=== PATIENT | male | born 1985 | race Caucasian/White ===

== ENCOUNTER 2016-12-17 18:30 | Emergency (ER) | payer BC ==
[~2016-12-17] VITALS: Ht 188 cm; Wt 95.9 kg
[~2016-12-17 18:30] MED LIST: IBUP-103 PO; MULT-600 PO; OXYC-57 PO
[2016-12-17 18:43] VITALS: TEMP 37; Ht 188 cm; Wt 95.9 kg
[2016-12-17] MEDS ORDERED: ASCA500 PO (19:42)
[2016-12-17] MEDS ORDERED: CHOL1000 PO (19:42)
[2016-12-17] MEDS ORDERED: OMEG10007 PO (19:42)
[2016-12-17 20:01] LABS: BASO % 0.3 %; BASO ABS # 0.02 K/uL (0-0.2); COMPLETE YES; EOS % 2.6 %; HEMATOCRIT 42.7 % (42-52); IG% 0.3 %; LYMPH ABS # 2.63 K/uL (1.2-3.4); MEAN CELL VOLUME 80.4 fL (80-100); MEAN CORPUSCULAR HEMOGLOBIN 29.2 pg (25-34); MEAN CORPUSCULAR HGB CONC 36.3 g/dl (32-36); MEAN PLATELET VOLUME 9.5 fL (7.4-10.4); MONO % 6.7 %; NEUT % 48.1 %; PLATELET COUNT 214 K/uL (130-400); RED BLOOD COUNT 5.31 M/uL (4.7-6.1); WHITE BLOOD COUNT 6.26 K/uL (4.8-10.8)
[2016-12-17 20:10] LABS: ALT/SGPT 42 U/L (12-78); AST/SGOT 22 U/L (15-37); BLOOD UREA NITROGEN 14 mg/dl (7-18); BUN/CREATININE RATIO 14.3 (10-20); CALCIUM 8.4 mg/dl (8.5-10.1); CARBON DIOXIDE 26 mmol/L (21-32); CHLORIDE 108 mmol/L (98-107); CREATININE 0.96 mg/dl (0.60-1.40); GLUCOSE 85 mg/dl (70-99); POTASSIUM 3.9 mmol/L (3.5-5.1); SODIUM 142 mmol/L (136-145)
--- NOTE | 2016-12-17 20:13 | DIAGNOSTIC IMAGING REPORT ---
CHEST ONE VIEW PORTABLE CLINICAL HISTORY: CHEST PAIN dyspnea COMPARISON STUDY: No previous studies for comparison. FINDINGS: The bones soft tissues and hemidiaphragms are normal. The cardiomediastinal silhouette is normal. The lungs are clear. The pulmonary vasculature is normal. IMPRESSION: Negative chest. Electronically signed by: Frantz Maier M.D. 12/17/2016 8:12 PM Dictated Date/Time: 12/17/2016 8:12 PM
[2016-12-17 20:21] LABS: ALKALINE PHOSPHATASE 64 U/L (45-117); CKMB/CK RATIO 0.8 (0-3.0)
[2016-12-17 21:45] VITALS: BP 130/85; PULSE 48; O2SAT 98
--- NOTE | 2016-12-18 02:01 | EMERGENCY ROOM VISIT NOTE ---
History Report prepared by Ludivina: Larisa Kendrick Under the Supervision of: Dr. Claude Hoff M.D. First contact with patient: 19:44 Chief Complaint: CHEST PAIN Stated Complaint: CHEST PAIN Nursing Triage Summary: Difficulty taking a deep breath. Pain in the left chest wall that radiates into the arm pit. History of Present Illness The patient is a 31 year old male who presents to the Emergency Room with complaints of resolved left sided chest pain beginning one hour prior to arrival. He notes the pain radiates under his left arm. 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 He notes that applying pressure under his arm helped to relieve the pain. He notes a similar pain occurred last week and lasted for 40 minutes. He denies cough, fever, recent traveling, or swelling to lower extremities. He had no diaphoresis or shortness of breath or pleurisy. No pain or swelling of his legs. No GI symptoms. Source of History: patient, family Onset: 1 hour AUTOMATION ANALYST Position: chest (left) Timing: resolved Associated Symptoms: No cough, No fevers Note: Patient denies swelling to lower extremities. Review of Systems See HPI for pertinent positives & negatives. A total of 10 systems reviewed and were otherwise negative. Past Medical & Surgical Medical Problems: (1) No Known Active Medical Problems Old medical records were reviewed. Nurse's notes were reviewed and I agree with. No history of diabetes, cardiac disease, pulmonary disease, blood clots Family History Patient reports no known family medical history. No significant cardiac disease, pulmonary disease, or blood clots Social History Smoking Status: Never Smoker Smokeless Tobacco Use: No Alcohol Use: none Marital Status: Housing Status: lives with family Occupation Status: employed Current/Historical Medications Scheduled Ascorbic Acid (Vitamin C), 500 MG PO DAILY Cholecalciferol (Vitamin D3), 1 TAB PO DAILY Fish Oil ([place]-3), 1 CAP PO DAILY Allergies Coded Allergies: No Known Allergies (Unverified , 12/17/16) Physical Exam Vital Signs Date Time Temp Pulse Resp B/P Pulse Ox O2 Delivery O2 Flow Rate FiO2 12/17/16 21:45 48 19 130/85 98 12/17/16 21:00 52 15 143/68 99 Room Air 12/17/16 19:31 53 12/17/16 18:43 37.0 86 20 153/102 96 Room Air Physical Exam General: Non-ill appearing young male. Well developed well nourished in no acute distress, breathing comfortably on room air. Normal speech HEENT: Normal cephalic atraumatic. Pupils are equal round and reactive to light. Anicteric. Extraocular movements are intact. Oropharynx is pink with moist mucous membranes. No swelling of the mouth lips or tongue. Neck: Supple with a midline trachea. No meningeal signs or stiffness, no JVD or bruits. No Stridor. Chest: Clear to auscultation bilaterally. No wheezes or rhonchi. No increased work of breathing. Heart: regular rate and rhythm. Abdomen: Soft nontender, nondistended without rebound guarding or rigidity. Extremities: No cyanosis clubbing or edema. No calf tenderness or assymetry Spine/Back. Non tender to palpation. No CVA tenderness Skin: Good turgor without rashes. Neurologic exam: Cranial nerves two through 12 are intact. Motor and sensation are intact and symmetrical throughout. Medical Decision & Procedures ER Provider Diagnostic Interpretation: X-ray results as stated below per interpretation by me and the radiologist: CHEST ONE VIEW PORTABLE CLINICAL HISTORY: CHEST PAIN dyspnea COMPARISON STUDY: No previous studies for comparison. FINDINGS: The bones soft tissues and hemidiaphragms are normal. The cardiomediastinal silhouette is normal. The lungs are clear. The pulmonary vasculature is normal. IMPRESSION: Negative chest. Electronically signed by: Frantz Maier M.D. 12/17/2016 8:12 PM Dictated Date/Time: 12/17/2016 8:12 PM Laboratory Results 12/17/16 19:35 Red Blood Count 5.31, Mean Corpuscular Volume 80.4, Mean Corpuscular Hemoglobin 29.2, Mean Corpuscular Hemoglobin Concent 36.3, Mean Platelet Volume 9.5, Neutrophils (%) (Auto) 48.1, Lymphocytes (%) (Auto) 42.0, Monocytes (%) (Auto) 6.7, Eosinophils (%) (Auto) 2.6, Basophils (%) (Auto) 0.3, Neutrophils # (Auto) 3.01, Lymphocytes # (Auto) 2.63, Monocytes # (Auto) 0.42, Eosinophils # (Auto) 0.16, Basophils # (Auto) 0.02 12/17/16 19:35 Test 3/18/17 19:35 12/17/16 20:07 White Blood Count 6.26 K/uL (4.8-10.8) Red Blood Count 5.31 M/uL (4.7-6.1) Hemoglobin 15.5 g/dL (14.0-18.0) Hematocrit 42.7 % (42-52) Mean Corpuscular Volume 80.4 fL (80-100) Mean Corpuscular Hemoglobin 29.2 pg (25-34) Mean Corpuscular Hemoglobin Concent 36.3 g/dl (32-36) Platelet Count 214 K/uL (130-400) Mean Platelet Volume 9.5 fL (7.4-10.4) Neutrophils (%) (Auto) 48.1 % Lymphocytes (%) (Auto) 42.0 % Monocytes (%) (Auto) 6.7 % Eosinophils (%) (Auto) 2.6 % Basophils (%) (Auto) 0.3 % Neutrophils # (Auto) 3.01 K/uL (1.4-6.5) Lymphocytes # (Auto) 2.63 K/uL (1.2-3.4) Monocytes # (Auto) 0.42 K/uL (0.11-0.59) Eosinophils # (Auto) 0.16 K/uL (0-0.5) Basophils # (Auto) 0.02 K/uL (0-0.2) RDW Standard Deviation 36.1 fL (36.4-46.3) RDW Coefficient of Variation 12.4 % (11.5-14.5) Immature Granulocyte % (Auto) 0.3 % Immature Granulocyte # (Auto) 0.02 K/uL (0.00-0.02) Anion Gap 8.0 mmol/L (3-11) Est Creatinine Clear Calc Drug Dose 130.9 ml/min Estimated GFR () 122.4 Estimated GFR (Non- 105.6 BUN/Creatinine Ratio 14.3 (10-20) Calcium Level 8.4 mg/dl (8.5-10.1) Total Bilirubin 0.3 mg/dl (0.2-1) Direct Bilirubin < 0.1 mg/dl (0-0.2) Aspartate Amino Transf (AST/SGOT) 22 U/L (15-37) Alanine Aminotransferase (ALT/SGPT) 42 U/L (12-78) Alkaline Phosphatase 64 U/L (45-117) Total Creatine Kinase 409 U/L (39-308) Creatine Kinase MB 3.2 ng/ml (0.5-3.6) Creatine Kinase MB Ratio 0.8 (0-3.0) Total Protein 7.2 gm/dl (6.4-8.2) Albumin 4.0 gm/dl (3.4-5.0) Lipase 116 U/L (73-393) Bedside D-Dimer 167 ng/mlFEU (0-450) Bedside Troponin I 0.000 ng/ml (0-0.045) Laboratory studies as stated above per my review. ECG Indication: chest pain Rate (beats per minute): 50 Rhythm: sinus bradycardia Findings: no acute ischemic change, other (nonspecific intraventricular delay) Comparison ECG Date: no prior available ED Course 1944: Past medical records reviewed. The patient was evaluated in room B11, and a complete history and physical examination were performed. 2104: The patient is resting comfortably. 2128: Upon reevaluation, the patient is hemodynamically stable. I discussed the results and treatment plan with the patient. He verbalized agreement of the treatment plan. The patient was discharged home. Medical Decision Differentials include, but are not limited to; acute coronary syndrome, pneumothorax, PE, electrolyte or metabolic abnormalities, musculoskeletal pain. This patient comes in as described above. He had left-sided chest pain that is now gone and got better with palpation. He had this a week ago. He looks well on exam. Chest x-ray EKG and multiple blood tests was obtained. chest x-ray does not suggest congestive heart failure, pneumonia, or pneumothorax. EKG does not suggest acute cardiac event or arrhythmia. His troponin is not elevated, CK-MB is not elevated. He has no acute electrolyte or metabolic abnormalities. His d-dimer is within normal limits and in a low pretest probability setting, makes PE highly unlikely. He feels good and would like to go home and I encouraged him to follow-up with his regular doctor for further workup and return to the ER if : increasing pain, recurrent symptoms, shortness of breath, any new problems or concerns. I think most likely this is musculoskeletal but again I encouraged him to return if any new problems or concerns. The patient and his family member are happy with plan and he was discharged to home. Impression Primary Impression: Left sided chest pain Scribe Attestation The scribe's documentation has been prepared under my direction and personally reviewed by me in its entirety. I confirm that the note above accurately reflects all work, treatment, procedures, and medical decision making performed by me. Departure Information Dispostion Home / Self-Care Referrals No Doctor, Assigned (PCP) Forms HOME CARE DOCUMENTATION FORM, IMPORTANT VISIT INFORMATION Patient Instructions My [facility] Additional Instructions Rest. Drink plenty of fluids. Return if: Worsening symptoms, shortness of breath, fever or chills, recurrence of symptoms, any new problems or concerns. Follow-up with your doctor in 1-2 days for recheck.
== END 2016-12-17 21:45 | disposition home or self-care (01) ==
LOC: C.EDB 18:31
DX: R07.9 Chest pain, unspecified (principal)